=== PATIENT | female | born 1950 | race African-American/Black ===

== ENCOUNTER 2017-07-15 15:46 | Emergency (ER) | payer MEDICARE, OTHER ==
[~2017-07-15] VITALS: Ht 170.2 cm; Wt 89.0 kg
[2017-07-15] MEDS ORDERED: ALPR1TAB2 PO (16:34)
[2017-07-15] MEDS ORDERED: TRAM50TA3 PO (16:34)
[2017-07-15] MEDS ORDERED: POTA10CA42 PO (16:34)
[2017-07-15] MEDS ORDERED: HYDR-523 PO (16:34)
[2017-07-15] MEDS ORDERED: FLEXARIL (16:34)
[2017-07-15] MEDS ORDERED: DIPH25CA83 PO (16:34)
[2017-07-15] MEDS ORDERED: HYDROCODONE/ACETAMINOPHEN 5/325MG TABLET PO ONE (22:45)
[2017-07-15 23:10] LABS: BASOPHILS % 1.1 % (0.0-2.0); EOSINOPHILS % 2.8 % (0.0-5.0); HEMATOCRIT. 31.5 % (36.0-48.0); LYMPHOCYTES % 32.7 % (20.0-50.0); MEAN CORPUSCULAR HEMOGLOBIN 27.5 pg (28.0-32.0); MEAN CORPUSCULAR VOLUME 86.3 fL (81.0-99.0); MEAN PLATELET VOLUME 8.1 fl (7.4-10.4); MONOCYTES % 6.9 % (2.0-8.0); NEUTROPHILS % 56.5 % (40.0-76.0); PLATELET 250 x1000/uL (130-400); RED BLOOD CELL COUNT 3.65 mill/uL (4.2-5.4); RED CELL DISTRIBUTION WIDTH 20.5 % (11.6-14.6)
[2017-07-15 23:15] LABS: CHLORIDE 107 mEq/L (98-107)
[2017-07-15 23:23] LABS: CARBON DIOXIDE 27 mEq/L (21-32)
[2017-07-16 01:00] VITALS: BP 139/78
== END 2017-07-16 01:00 | disposition home or self-care (01) ==
LOC: ER 15:46
DX: G89.29 Other chronic pain (principal); M54.9 Dorsalgia, unspecified
CPT/HCPCS: 36415; 71010; 80053; 85025; 93005; 99285; A4315

== ENCOUNTER 2018-03-07 15:06 | Observation (INO) | payer OTHER ==
[~2018-03-07] VITALS: Ht 170.2 cm; Wt 88.0 kg
[~2018-03-07 15:06] MED LIST: ALPR1TAB2 PO; DIPH25CA83 PO; FLEXARIL; HYDR-523 PO; POTA10CA42 PO; TRAM50TA3 PO
[2018-03-07] MEDS ORDERED: MORPHINE SULFATE 4 MG/ML CPJ (NOT FOR IM USE) IV STA (15:35)
[2018-03-07] MEDS ORDERED: ONDANSETRON HCL 4MG/2ML VIAL IV STA (15:35)
[2018-03-07] MEDS ORDERED: PIPERACILLIN/TAZ 3.375G PREMIX 50 ML IV ONE (15:45)
[2018-03-07] MEDS ORDERED: VANCOMYCIN 1 G PREMIX 200 ML IV ONE (15:45)
[2018-03-07 17:28] LABS: HEMATOCRIT. 31.7 % (36.0-48.0); HEMOGLOBIN. 9.9 g/dL (12.0-16.0); MEAN CORPUSCULAR HEMOGLOBIN 25.2 pg (28.0-32.0); MEAN CORPUSCULAR VOLUME 80.4 fL (81.0-99.0); MEAN PLATELET VOLUME 7.7 fl (7.4-10.4); PLATELET 214 x1000/uL (130-400); RED BLOOD CELL COUNT 3.94 mill/uL (4.2-5.4); RED CELL DISTRIBUTION WIDTH 23.3 % (11.6-14.6)
[2018-03-07 17:31] LABS: CHLORIDE 104 mEq/L (98-107)
[2018-03-07 17:33] LABS: INR 1.2; PARTIAL THROMBOPLASTIN TIME 27.9 sec (23.4-31.0); PROTHROMBIN TIME 12.7 sec (9.4-11.6)
[2018-03-07] MEDS ORDERED: POTASSIUM CHLORIDE 20MEQ TABLET SR PO ONE (17:45)
[2018-03-07 17:51] LABS: PLATELET ESTIMATE NORMAL
[2018-03-07] MEDS ORDERED: FUROSEMIDE 40MG/4ML VIAL IVP ONE (18:00)
[2018-03-07 18:42] LABS: CLARITY URINE CLOUDY (CLEAR); COLOR URINE DARK YELLOW (YELLOW); KETONES URINE 1+ (NEGATIVE); LEUKOCYTE ESTERASE URINE NEGATIVE (NEGATIVE); NITRITE URINE NEGATIVE (NEGATIVE); OCCULT BLOOD URINE 2+ (NEGATIVE); PH URINE 5.5 (4.5-8.0); PROTEIN URINE 1+ (NEGATIVE); SPECIFIC GRAVITY URINE 1.029 (1.005-1.030)
[2018-03-07] MEDS ORDERED: HYDROCODONE/ACETAMINOPHEN 5/325MG TABLET PO ONE (20:30)
[2018-03-07] MEDS ORDERED: ONDANSETRON 4MG ODT PO ONE (20:30)
[2018-03-07 22:15] VITALS: BP 118/74
[2018-03-07 23:00] VITALS: BP 118/74
[2018-03-07] MEDS ORDERED: ONDANSETRON HCL 4MG/2ML VIAL IV PRN (23:30)
[2018-03-07] MEDS ORDERED: ACETAMINOPHEN 325MG TABLET PO PRN (23:30)
[2018-03-07] MEDS ORDERED: HYDROCODONE/APAP 7.5/325MG 1 TAB TABLET PO PRN (23:30)
[2018-03-07] MEDS ORDERED: CLONIDINE 0.1MG TABLET PO PRN (23:30)
[2018-03-08] MEDS: ASPIRIN 81MG EC TABLET PO SCH ×2 (00:08→09:08)
[2018-03-08] MEDS: METOPROLOL TARTRATE 50MG TABLET PO SCH ×3 (00:09→21:00)
[2018-03-08] MEDS: ENOXAPARIN 100MG/ML SYR SUBCUT SCH ×4 (00:10→21:04)
[2018-03-08] MEDS: PIPERACILLIN/TAZ 3.375G PREMIX 50 ML IV SCH ×3 (02:11→19:00)
[2018-03-08] MEDS ORDERED: BACL-141 PO (02:35)
[2018-03-08] MEDS ORDERED: NIAC1000 PO (02:37)
[2018-03-08] MEDS ORDERED: NON FORMULARY PATIENT HOME MED EA XX SCH (02:45)
[2018-03-08] MEDS ORDERED: ALPRAZOLAM 0.5 MG TABLET PO PRN (02:48)
[2018-03-08] MEDS ORDERED: VANCOMYCIN 500 MG PREMIX 100 ML IV SCH (03:00)
[2018-03-08 04:00] VITALS: BP 119/45
[2018-03-08] MEDS: HYDROMORPHONE HCL/PF 2MG/ML CPJ IV PRN ×4 (04:16→21:11)
[2018-03-08 06:19] LABS: BASOPHILS % 0.3 % (0.0-2.0); EOSINOPHILS % 0.3 % (0.0-5.0); HEMATOCRIT. 27.7 % (36.0-48.0); HEMOGLOBIN. 8.7 g/dL (12.0-16.0); LYMPHOCYTES % 10.4 % (20.0-50.0); MEAN CORPUSCULAR HEMOGLOBIN 25.5 pg (28.0-32.0); MEAN PLATELET VOLUME 8.7 fl (7.4-10.4); MONOCYTES % 3.1 % (2.0-8.0); NEUTROPHILS % 85.9 % (40.0-76.0); PLATELET 190 x1000/uL (130-400); RED BLOOD CELL COUNT 3.42 mill/uL (4.2-5.4)
[2018-03-08 06:37] LABS: CHLORIDE 104 mEq/L (98-107)
[2018-03-08 06:57] LABS: CREATINE KINASE MB FRACTION 0.9 ng/mL (0.5-3.6)
[2018-03-08 06:59] LABS: LDL CHOLESTEROL 17 mg/dL (5-100); T4 FREE 0.95 ng/dL (0.76-1.46)
[2018-03-08 07:00] LABS: CREATINE KINASE 565 IU/L (26-192)
[2018-03-08 07:01] LABS: HDL CHOLESTEROL 21 mg/dL (40-59)
[2018-03-08 07:27] VITALS: BP 108/42
[2018-03-08] MEDS ORDERED: POTASSIUM CHLORIDE 20MEQ TABLET SR PO SCH (09:00)
[2018-03-08] MEDS: FUROSEMIDE 40MG TABLET PO SCH (09:00)
[2018-03-08] MEDS: DIPHENHYDRAMINE 25MG CAPSULE PO PRN (09:09)
[2018-03-08] MEDS: POTASSIUM CHLORIDE 20MEQ/PACKET PO SCH (10:30)
[2018-03-08 11:18] VITALS: BP 102/32
[2018-03-08] MEDS: VANCOMYCIN 1 G PREMIX 200 ML IV SCH (12:36)
[2018-03-08 15:30] VITALS: BP 100/51
[2018-03-08 15:47] LABS: CREATINE KINASE MB FRACTION 1.1 ng/mL (0.5-3.6)
[2018-03-08 20:00] VITALS: BP 114/46
[2018-03-09] VITALS: BP 146/47
[2018-03-09] MEDS: PIPERACILLIN/TAZ 3.375G PREMIX 50 ML IV SCH ×2 (01:42→09:21)
[2018-03-09] MEDS: DIPHENHYDRAMINE 25MG CAPSULE PO PRN (01:48)
[2018-03-09] MEDS: HYDROMORPHONE HCL/PF 2MG/ML CPJ IV PRN ×2 (03:07→11:17)
[2018-03-09 04:00] VITALS: BP 121/46
[2018-03-09] MEDS: VANCOMYCIN 1 G PREMIX 200 ML IV SCH (05:06)
[2018-03-09 08:00] VITALS: BP 132/54
[2018-03-09] MEDS: FUROSEMIDE 40MG TABLET PO SCH (08:56)
[2018-03-09] MEDS: ASPIRIN 81MG EC TABLET PO SCH (08:56)
[2018-03-09] MEDS: METOPROLOL TARTRATE 50MG TABLET PO SCH (08:56)
[2018-03-09] MEDS: ENOXAPARIN 100MG/ML SYR SUBCUT SCH (08:58)
[2018-03-09] MEDS: POTASSIUM CHLORIDE 20MEQ/PACKET PO SCH (08:58)
[2018-03-09 12:00] VITALS: BP 150/57
[2018-03-09 12:43] LABS: HEMATOCRIT 29.9 % (36.0-48.0); HEMOGLOBIN 9.3 g/dL (12.0-16.0); MEAN CORPUSCULAR HEMOGLOBIN 24.8 pg (28.0-32.0); MEAN CORPUSCULAR VOLUME 79.5 fL (81.0-99.0); PLATELET 244 x1000/uL (130-400); RED BLOOD CELL COUNT 3.77 mill/uL (4.2-5.4); RED CELL DISTRIBUTION WIDTH 23.3 % (11.6-14.6)
[2018-03-09 12:47] LABS: CHLORIDE 103 mEq/L (98-107)
[2018-03-09] MEDS ORDERED: DILTIAZEM HCL 60MG TABLET PO SCH (14:00)
[2018-03-09] MEDS ORDERED: POTASSIUM CHLORIDE 20MEQ TABLET SR PO SCH (14:00)
[2018-03-09] MEDS ORDERED: LEVOFLOXACIN 500MG PREMIX 100 ML IV SCH (15:00)
[2018-03-09 16:00] VITALS: BP 112/41
[2018-03-09] MEDS ORDERED: LEVOFLOXACIN 500MG PREMIX 100 ML IV NR (16:00)
[2018-03-09 17:23] VITALS: BP 112/41
[2018-03-10] MEDS ORDERED: LEVOFLOXACIN 500MG TABLET PO SCH (11:00)
== END 2018-03-09 19:10 | disposition home health service (06) ==
LOC: ER 15:34 → EDBEDREQSVC 15:38 → EDBEDREQTM 18:02 → 7WST 18:02 → EDBEDREQ 18:02 → EDBEDREQSVC 18:02 → ENRESERV 19:23
PROVIDERS: ADMIT Internal Medicine; ATTEND Internal Medicine
DX: M25.551 Pain in right hip (principal); M06.9 Rheumatoid arthritis, unspecified; R26.9 Unspecified abnormalities of gait and mobility; M16.11 Unilateral primary osteoarthritis, right hip; J44.9 Chronic obstructive pulmonary disease, unspecified; K21.9 Gastro-esophageal reflux disease without esophagitis; N39.0 Urinary tract infection, site not specified; I48.91 Unspecified atrial fibrillation; I10 Essential (primary) hypertension; F41.9 Anxiety disorder, unspecified; E66.9 Obesity, unspecified; Z96.652 Presence of left artificial knee joint; Z98.84 Bariatric surgery status
CPT/HCPCS: 36415; 71045; 72192; 73502; 73700; 73721; 74018; 80048; 80053; 80061; 81003; 82550; 82553; 83605; 83690; 83880; 84439; 84443; 84484; 85025; 85027; 85610; 85651; 85730; 86140; 87040; 87077; 87086; 87186; 93005; 93306; 93970; 96365; 96366; 96367; 96368; 96372; 96375; 96376; 97110; 97162; 97530; 99285; G0378; J1170; J1650; J1940; J1956; J2270; J2405; J2543; J3370; J7030; J7050; Q0162; Q0163; A4315

== ENCOUNTER 2018-07-18 12:58 | Emergency (ER) | payer OTHER ==
[~2018-07-18] VITALS: Ht 157.5 cm; Wt 101.0 kg
[~2018-07-18 12:58] MED LIST changes: +BACL-141 PO; -FLEXARIL; -POTA10CA42 PO; -TRAM50TA3 PO
[2018-07-18] MEDS ORDERED: CLONIDINE 0.2MG TABLET PO ONE (14:45)
[2018-07-18] MEDS ORDERED: METOCLOPRAMIDE HCL 10MG/2ML VIAL IV ONE (14:45)
[2018-07-18] MEDS ORDERED: DIPHENHYDRAMINE 50MG/ML VIAL IV ONE (14:45)
[2018-07-18 15:18] LABS: BASOPHILS % 0.6 % (0.0-2.0); EOSINOPHILS % 4.8 % (0.0-5.0); HEMATOCRIT. 32.4 % (36.0-48.0); HEMOGLOBIN. 9.9 g/dL (12.0-16.0); LYMPHOCYTES % 30.6 % (20.0-50.0); MEAN CORPUSCULAR HEMOGLOBIN 24.2 pg (28.0-32.0); MEAN CORPUSCULAR VOLUME 79.4 fL (81.0-99.0); MEAN PLATELET VOLUME 8.1 fl (7.4-10.4); MONOCYTES % 8.5 % (2.0-8.0); NEUTROPHILS % 55.5 % (40.0-76.0); PLATELET 263 x1000/uL (130-400); RED BLOOD CELL COUNT 4.08 mill/uL (4.2-5.4)
[2018-07-18 15:19] LABS: CHLORIDE 108 mEq/L (98-107)
[2018-07-18 15:56] LABS: PLATELET ESTIMATE NORMAL
[2018-07-18] MEDS ORDERED: MORPHINE SULFATE 2 MG/ML CPJ (NOT FOR IM USE) IV NR (17:30)
[2018-07-18 19:17] LABS: CLARITY URINE CLEAR (CLEAR); COLOR URINE YELLOW (YELLOW); KETONES URINE NEGATIVE (NEGATIVE); LEUKOCYTE ESTERASE URINE NEGATIVE (NEGATIVE); NITRITE URINE NEGATIVE (NEGATIVE); OCCULT BLOOD URINE TRACE (NEGATIVE); PH URINE 8.5 (4.5-8.0); PROTEIN URINE NEGATIVE (NEGATIVE); SPECIFIC GRAVITY URINE 1.008 (1.005-1.030)
[2018-07-18 21:09] VITALS: BP 128/70
== END 2018-07-18 21:11 | disposition home or self-care (01) ==
LOC: ER 12:58
DX: R51 Headache (principal); D64.9 Anemia, unspecified; R79.89 Other specified abnormal findings of blood chemistry
CPT/HCPCS: 36415; 71045; 80053; 81003; 83690; 83880; 84484; 85025; 93005; 96374; 96375; 99285; J1200; J2270; J2765; A4315

== ENCOUNTER 2019-02-28 22:56 | Inpatient (IN) | payer MEDICARE, OTHER ==
[~2019-02-28] VITALS: Ht 167.6 cm; Wt 98.4 kg
[2019-02-28] MEDS ORDERED: MORPHINE SULFATE 4 MG/ML CPJ (NOT FOR IM USE) IV STA (23:37)
[2019-02-28] MEDS ORDERED: ONDANSETRON HCL 4MG/2ML INJ IV STA (23:37)
[2019-02-28] MEDS ORDERED: ASPIRIN 81MG TABLET PO ONE (23:45)
[2019-02-28] MEDS ORDERED: NITROGLYCERIN OINT 1GM/INCH UDPKT TD ONE (23:45)
[2019-03-01] VITALS (14 sets, daily range): BP systolic 89–156; BP diastolic 42–72
[2019-03-01] LABS: BASOPHILS % 1.5 % (0.0-2.0); EOSINOPHILS % 2.5 % (0.0-5.0); HEMATOCRIT. 21.5 % (36.0-48.0); LYMPHOCYTES % 19.6 % (20.0-50.0); MEAN CORPUSCULAR HEMOGLOBIN 19.5 pg (28.0-32.0); MEAN CORPUSCULAR VOLUME 67.7 fL (81.0-99.0); MEAN PLATELET VOLUME 8.8 fl (7.4-10.4); MONOCYTES % 10.6 % (2.0-8.0); NEUTROPHILS % 65.8 % (40.0-76.0); PLATELET 660 x1000/uL (130-400); RED BLOOD CELL COUNT 3.18 mill/uL (4.2-5.4); RED CELL DISTRIBUTION WIDTH 28.3 % (11.6-14.6)
[2019-03-01 00:05] LABS: CHLORIDE 112 mEq/L (98-107); HEMOGLOBIN. 6.2 g/dL (12.0-16.0)
[2019-03-01 00:33] LABS: PLATELET ESTIMATE INCREASED
[2019-03-01] MEDS ORDERED: MORPHINE SULFATE 4 MG/ML CPJ (NOT FOR IM USE) IV ONE (04:30)
[2019-03-01] MEDS ORDERED: ACETAMINOPHEN 325MG TABLET PO PRN (11:30)
[2019-03-01] MEDS ORDERED: CLONIDINE 0.1MG TABLET PO PRN (11:30)
[2019-03-01] MEDS ORDERED: MAGNESIUM/ALUMINUM HYDROXIDE/SIMETHICONE 30ML UDC PO PRN (11:30)
[2019-03-01] MEDS ORDERED: NA PHOS,M-B/NA PHOS,DI-BA ENEMA 118ML PR PRN (11:30)
[2019-03-01] MEDS ORDERED: ONDANSETRON HCL 4MG/2ML INJ IV PRN (11:30)
[2019-03-01] MEDS ORDERED: DOCUSATE SODIUM 100MG CAPSULE PO PRN (11:30)
[2019-03-01] MEDS ORDERED: IPRATROPIUM/ALBUTEROL 0.5-3(2.5)MG/3ML NEB INH PRN (11:30)
[2019-03-01] MEDS ORDERED: LORAZEPAM 0.5MG TABLET PO PRN ×2 (11:30→15:30)
[2019-03-01] MEDS ORDERED: ACETAMINOPHEN 650MG SUPP PR PRN (11:30)
[2019-03-01] MEDS: HYDROCODONE/ACETAMINOPHEN 5/325MG TABLET PO PRN ×2 (12:40→21:16)
[2019-03-01 13:43] LABS: CHLORIDE 112 mEq/L (98-107)
[2019-03-01 13:44] LABS: INR 1.1
[2019-03-01 14:03] LABS: MEAN CORPUSCULAR HEMOGLOBIN 19.3 pg (28.0-32.0); MEAN CORPUSCULAR VOLUME 68.3 fL (81.0-99.0); PLATELET 623 x1000/uL (130-400); RED BLOOD CELL COUNT 3.12 mill/uL (4.2-5.4); RED CELL DISTRIBUTION WIDTH 28.1 % (11.6-14.6)
[2019-03-01 14:11] LABS: HEMATOCRIT 21.3 % (36.0-48.0)
[2019-03-01] MEDS ORDERED: MEDICATION NOT ON FORMULARY EA (Alprazolam (Xanax) 1 MG) PO PRN (14:15)
[2019-03-01] MEDS ORDERED: ALPRAZOLAM 0.5 MG TABLET PO PRN (14:30)
[2019-03-01 14:58] LABS: CLARITY URINE CLOUDY (CLEAR); COLOR URINE AMBER (YELLOW); KETONES URINE NEGATIVE (NEGATIVE); LEUKOCYTE ESTERASE URINE 2+ (NEGATIVE); NITRITE URINE POSITIVE (NEGATIVE); OCCULT BLOOD URINE 2+ (NEGATIVE); PROTEIN URINE 1+ (NEGATIVE); SPECIFIC GRAVITY URINE 1.022 (1.005-1.030)
[2019-03-01 15:26] LABS: *BARBITURATES SCREEN URINE NEGATIVE (NEGATIVE)
[2019-03-01 15:27] LABS: *AMPHETAMINES SCREEN URINE NEGATIVE (NEGATIVE); *BENZODIAZEPINES SCREEN URINE NEGATIVE (NEGATIVE); *COCAINE SCREEN URINE NEGATIVE (NEGATIVE); METHADONE URINE SCREEN NEGATIVE (NEGATIVE)
[2019-03-01 15:28] LABS: CANNABINOID URINE SCREEN PRESUMTIVE POSITIVE (NEGATIVE); OPIATES URINE SCREEN PRESUMTIVE POSITIVE (NEGATIVE); PHENCYCLIDINE URINE SCREEN NEGATIVE (NEGATIVE)
[2019-03-01] MEDS ORDERED: POTASSIUM CHLORIDE INJ 40 MEQ in DEXT 5% WATER 250 ML IV NR (16:00)
[2019-03-01 16:09] LABS: CREATINE KINASE 82 IU/L (26-192); CREATINE KINASE MB FRACTION 1.3 ng/mL (0.5-3.6)
[2019-03-01] MEDS: FOLIC ACID 1MG TABLET PO SCH (16:10)
[2019-03-01] MEDS: DEXT 5%/0.45% NACL 1000ML 1,000 ML IV SCH (16:51)
[2019-03-01] MEDS: GUAIFENESIN 200MG/10ML SUGAR FREE UDC PO PRN (17:02)
[2019-03-01] MEDS: DIPHENHYDRAMINE 50MG/ML VIAL IV PRN ×2 (17:02→23:15)
[2019-03-01 17:08] LABS: BG BASE EXCESS -0.2 mmol/L (-2.0-2.0); BG CARBOXYHEMOGLOBIN 0.3 % (0.5-1.5); BG DEOXYHEMOGLOBIN 6.7 % (0.0-5.0); BG FRACTION INSPIRED OXYGEN 21; BG HCO3 ACT 24.4 mmol/L (22.0-26.0); BG METHEMOGLOBIN 0.3 % (0.0-1.5); BG OXYGEN SATURATION 93.3 % (92.0-98.5); BG OXYHEMOGLOBIN 92.7 % (94.0-97.0); BG PCO2 39.8 mmHg (35.0-45.0); BG PH 7.406 (7.350-7.450); BG PO2 96.6 mmHg (75.0-100.0); BG SAMPLE SITE LEFT BRACHIAL; BG TOTAL HEMOGLOBIN 6.3 g/dL (12.0-18.0); BG VENT MODE ROOM AIR
[2019-03-01] MEDS ORDERED: MEDICATION NOT ON FORMULARY EA (Baclofen 10 MG) PO SCH (21:00)
[2019-03-01] MEDS: BACLOFEN 10MG TABLET PO SCH (21:16)
[2019-03-01] MEDS: DILTIAZEM HCL 30MG TABLET PO SCH (23:20)
[2019-03-01 23:46] LABS: CREATINE KINASE 73 IU/L (26-192)
[2019-03-01 23:47] LABS: CREATINE KINASE MB FRACTION < 1.0 ng/mL (0.5-3.6)
[2019-03-02] VITALS (11 sets, daily range): BP systolic 109–155; BP diastolic 52–82
[2019-03-02 00:56] LABS: HEMATOCRIT 27.6 % (36.0-48.0); HEMOGLOBIN 8.4 g/dL (12.0-16.0)
[2019-03-02] MEDS: HYDROCODONE/ACETAMINOPHEN 5/325MG TABLET PO PRN ×3 (05:17→22:04)
[2019-03-02] MEDS: DILTIAZEM HCL 30MG TABLET PO SCH ×3 (05:25→21:27)
[2019-03-02] MEDS ORDERED: LIDOCAINE HCL 1% 20ML VIAL (Pyxis) INJ ONE (07:27)
[2019-03-02] MEDS ORDERED: SODIUM BICARBONATE 4% (2.4MEQ) 5ML VIAL IV ONE (07:27)
[2019-03-02 07:28] LABS: BASOPHILS % 1.9 % (0.0-2.0); HEMATOCRIT. 29.7 % (36.0-48.0); HEMOGLOBIN. 8.8 g/dL (12.0-16.0); MEAN CORPUSCULAR VOLUME 70.7 fL (81.0-99.0); MEAN PLATELET VOLUME 8.6 fl (7.4-10.4); MONOCYTES % 8.9 % (2.0-8.0); NEUTROPHILS % 63.2 % (40.0-76.0); PLATELET 708 x1000/uL (130-400); RED CELL DISTRIBUTION WIDTH 27.6 % (11.6-14.6)
[2019-03-02 07:40] LABS: T4 FREE 0.89 ng/dL (0.76-1.46)
[2019-03-02] MEDS ORDERED: IOHEXOL-350 100 ML BOTTLE ONE (09:09)
[2019-03-02] MEDS: FOLIC ACID 1MG TABLET PO SCH (10:06)
[2019-03-02] MEDS: PANTOPRAZOLE SODIUM 40 MG/VIAL IV SCH (10:06)
[2019-03-02] MEDS: DEXT 5%/0.45% NACL 1000ML 1,000 ML IV SCH (10:08)
[2019-03-02] MEDS ORDERED: FUROSEMIDE 40MG/4ML VIAL IVP NR (11:00)
[2019-03-02 12:20] LABS: FOLIC ACID (FOLATE) SERUM 15.4 ng/mL (>5.38)
[2019-03-02] MEDS: IRON SUCROSE COMPLEX 100 MG/5 ML ML IV SCH (13:10)
[2019-03-02] MEDS: DIPHENHYDRAMINE 50MG/ML VIAL IV PRN (13:10)
[2019-03-02 13:15] LABS: HEMATOCRIT 26.2 % (36.0-48.0); HEMOGLOBIN 7.9 g/dL (12.0-16.0)
[2019-03-02] MEDS ORDERED: IOHEXOL-300 50 ML BOTTLE IV ONE (15:59)
[2019-03-02] MEDS: ALPRAZOLAM 0.5 MG TABLET PO PRN (16:30)
[2019-03-02] MEDS: LEVOFLOXACIN 500MG PREMIX 100 ML IV SCH (16:31)
[2019-03-02 18:25] LABS: HEMATOCRIT 24.5 % (36.0-48.0); HEMOGLOBIN 7.5 g/dL (12.0-16.0)
[2019-03-02] MEDS: BACLOFEN 10MG TABLET PO SCH (21:25)
[2019-03-03] VITALS: BP 155/68
[2019-03-03] MEDS: DIPHENHYDRAMINE 50MG/ML VIAL IV PRN ×3 (02:28→22:25)
[2019-03-03] MEDS: GUAIFENESIN 200MG/10ML SUGAR FREE UDC PO PRN ×2 (02:28→17:20)
[2019-03-03] MEDS: ALPRAZOLAM 0.5 MG TABLET PO PRN (02:28)
[2019-03-03 04:00] VITALS: BP 148/66
[2019-03-03] MEDS: DILTIAZEM HCL 30MG TABLET PO SCH ×3 (06:27→22:00)
[2019-03-03 07:04] LABS: HEMATOCRIT 27.9 % (36.0-48.0); HEMOGLOBIN 8.6 g/dL (12.0-16.0); MEAN CORPUSCULAR HEMOGLOBIN 22.3 pg (28.0-32.0); MEAN CORPUSCULAR VOLUME 71.9 fL (81.0-99.0); PLATELET 653 x1000/uL (130-400); RED BLOOD CELL COUNT 3.88 mill/uL (4.2-5.4); RED CELL DISTRIBUTION WIDTH 29.2 % (11.6-14.6)
[2019-03-03 07:07] LABS: CHLORIDE 112 mEq/L (98-107)
[2019-03-03 08:00] VITALS: BP 108/35
[2019-03-03] MEDS: HYDROCODONE/ACETAMINOPHEN 5/325MG TABLET PO PRN ×3 (08:25→22:15)
[2019-03-03] MEDS: FUROSEMIDE 40MG/4ML VIAL IVP SCH (09:03)
[2019-03-03] MEDS: PANTOPRAZOLE SODIUM 40 MG/VIAL IV SCH (09:03)
[2019-03-03] MEDS: FOLIC ACID 1MG TABLET PO SCH (09:04)
[2019-03-03 12:00] VITALS: BP 143/33
[2019-03-03] MEDS ORDERED: POTASSIUM CHLORIDE 20MEQ TABLET SR PO NR (12:00)
[2019-03-03] MEDS: IRON SUCROSE COMPLEX 100 MG/5 ML ML IV SCH (14:52)
[2019-03-03 16:00] VITALS: BP 129/44
[2019-03-03] MEDS: LEVOFLOXACIN 500MG PREMIX 100 ML IV SCH (17:20)
[2019-03-03 20:00] VITALS: BP 110/48
[2019-03-03] MEDS ORDERED: CYANOCOBALAMIN 1000MCG/ML VIAL IM NR (21:30)
[2019-03-03] MEDS: BACLOFEN 10MG TABLET PO SCH (22:14)
[2019-03-04] VITALS: BP 121/49
[2019-03-04 04:00] VITALS: BP 108/31
[2019-03-04] MEDS: DIPHENHYDRAMINE 50MG/ML VIAL IV PRN ×2 (04:11→12:20)
[2019-03-04] MEDS: DILTIAZEM HCL 30MG TABLET PO SCH ×2 (06:00→13:58)
[2019-03-04] MEDS: FOLIC ACID 1MG TABLET PO SCH (09:20)
[2019-03-04] MEDS: PANTOPRAZOLE SODIUM 40 MG/VIAL IV SCH (09:22)
[2019-03-04] MEDS: HYDROCODONE/ACETAMINOPHEN 5/325MG TABLET PO PRN (09:22)
[2019-03-04] MEDS: FUROSEMIDE 40MG/4ML VIAL IVP SCH (09:22)
[2019-03-04 12:00] VITALS: BP 124/74
[2019-03-04] MEDS ORDERED: ALPRAZOLAM 0.5 MG TABLET PO PRN (12:15)
[2019-03-04 13:21] LABS: HEMATOCRIT 32.4 % (36.0-48.0); MEAN CORPUSCULAR HEMOGLOBIN 22.1 pg (28.0-32.0); MEAN CORPUSCULAR VOLUME 71.8 fL (81.0-99.0); PLATELET 784 x1000/uL (130-400); RED BLOOD CELL COUNT 4.51 mill/uL (4.2-5.4); RED CELL DISTRIBUTION WIDTH 30.9 % (11.6-14.6)
[2019-03-04 13:24] LABS: CHLORIDE 107 mEq/L (98-107)
[2019-03-04 13:37] VITALS: BP 124/74
[2019-03-04] MEDS: IRON SUCROSE COMPLEX 100 MG/5 ML ML IV SCH (13:58)
[2019-03-04 16:00] VITALS: BP 126/46
[2019-03-04] MEDS ORDERED: NITROFURANTOIN 100MG M/M CAPSULE PO SCH (21:00)
[2019-03-05] MEDS ORDERED: PANTOPRAZOLE 40MG DR TABLET PO SCH (07:10)
[2019-03-05] MEDS ORDERED: FAMOTIDINE 20MG TABLET PO SCH (09:00)
== END 2019-03-04 16:40 | disposition home health service (06) | DRG 204 ==
LOC: ER 22:56 → 8WST 03-01 02:37 → EDBEDREQ 03-01 02:41 → EDBEDREQTM 03-01 02:41 → EDBEDREQDT 03-01 02:41 → ENRESERV 03-01 10:08 → ER 03-01 11:29
PROVIDERS: ADMIT Internal Medicine; ATTEND Internal Medicine
PROC: 30233N1 Transfusion of Nonautologous Red Blood Cells into Peripheral Vein, Percutaneous Approach (ICD-10-PCS; principal; 2019-03-01)
PROC: 02HV33Z Insertion of Infusion Device into Superior Vena Cava, Percutaneous Approach (ICD-10-PCS; 2019-03-02)
PROC: B548ZZA Ultrasonography of Superior Vena Cava, Guidance (ICD-10-PCS; 2019-03-02)
PROC: B5181ZA Fluoroscopy of Superior Vena Cava using Low Osmolar Contrast, Guidance (ICD-10-PCS; 2019-03-02)
DX: R06.03 Acute respiratory distress (principal); N39.0 Urinary tract infection, site not specified; K92.2 Gastrointestinal hemorrhage, unspecified; D68.59 Other primary thrombophilia; K90.9 Intestinal malabsorption, unspecified; I48.92 Unspecified atrial flutter; E87.70 Fluid overload, unspecified; Z86.718 Personal history of other venous thrombosis and embolism; L40.9 Psoriasis, unspecified; E87.6 Hypokalemia; E86.0 Dehydration; I48.91 Unspecified atrial fibrillation; E11.65 Type 2 diabetes mellitus with hyperglycemia; D50.9 Iron deficiency anemia, unspecified; B96.20 Unspecified Escherichia coli [E. coli] as the cause of diseases classified elsewhere; D57.1 Sickle-cell disease without crisis; D63.8 Anemia in other chronic diseases classified elsewhere; E53.8 Deficiency of other specified B group vitamins; Z96.659 Presence of unspecified artificial knee joint; E78.5 Hyperlipidemia, unspecified; I10 Essential (primary) hypertension; M19.90 Unspecified osteoarthritis, unspecified site; Z86.711 Personal history of pulmonary embolism; Z98.84 Bariatric surgery status; Z79.899 Other long term (current) drug therapy; Z79.01 Long term (current) use of anticoagulants
CPT/HCPCS: 36415; 36558; 36573; 36600; 71045; 71275; 75820; 80048; 80061; 80305; 82270; 82375; 82550; 82553; 82607; 82728; 82746; 82805; 83036; 83540; 83550; 83880; 84439; 84443; 84484; 85014; 85018; 85027; 85651; 86038; 86850; 86900; 86920; 87077; 87186; 93005; 93306; 93970; 96374; 96375; 97162; 97530; 99285; C1725; C1769; C1887; C9113; J1200; J1940; J1956; J2270; J2405; J3420; J3480; J3490; J7050; J7060; P9016; Q9967; A4315

== ENCOUNTER 2021-10-21 04:06 | Emergency (ER) | payer OTHER, MEDICAID ==
[~2021-10-21] VITALS: Ht 162.6 cm; Wt 64.0 kg
[~2021-10-21 04:06] MED LIST changes: +ASPI-1497 MT; +FERR-71 MT; +FURO-151 MT; +LOSA25TA3 MT; +METO25TA6 MT; +SILD20TA PO
[2021-10-21] MEDS ORDERED: KETOROLAC 30MG/ML VIAL IV STA (07:17)
[2021-10-21 08:12] LABS: BASOPHILS % 1.3 % (0.0-2.0); HEMATOCRIT. 32.1 % (36.0-48.0); HEMOGLOBIN. 10.6 g/dL (12.0-16.0); LYMPHOCYTES % 15.1 % (20.0-50.0); MEAN CORPUSCULAR HEMOGLOBIN 29.7 pg (28.0-32.0); MEAN CORPUSCULAR VOLUME 90.1 fL (81.0-99.0); MEAN PLATELET VOLUME 7.3 fl (7.4-10.4); NEUTROPHILS % 78.6 % (40.0-76.0); PLATELET 456 x1000/uL (130-400); RED BLOOD CELL COUNT 3.57 mill/uL (4.2-5.4); RED CELL DISTRIBUTION WIDTH 21.8 % (11.6-14.6)
[2021-10-21 08:18] LABS: CHLORIDE 106 mEq/L (98-107)
[2021-10-21] MEDS ORDERED: MAGNESIUM 2 G PREMIX 50 ML IV ONE (11:45)
[2021-10-21] MEDS ORDERED: KCL 20MEQ/100ML PREMIX 100 ML IV ONE ×5 (11:45)
[2021-10-21] MEDS ORDERED: POTASSIUM CHLORIDE 20MEQ/PACKET PO ONE (11:45)
[2021-10-21] MEDS ORDERED: KCL 20MEQ/100ML PREMIX 100 ML IV SCH (12:15)
[2021-10-21 18:58] VITALS: BP 131/60
== END 2021-10-21 19:17 | disposition short-term general hospital (02) ==
LOC: ER 04:06 → CANBEDREQ 18:34 → ER 19:17
DX: R53.1 Weakness (principal); E87.6 Hypokalemia; R53.81 Other malaise; J90 Pleural effusion, not elsewhere classified; M79.605 Pain in left leg; M79.604 Pain in right leg; D57.1 Sickle-cell disease without crisis; M32.9 Systemic lupus erythematosus, unspecified; D64.9 Anemia, unspecified; Z96.659 Presence of unspecified artificial knee joint; Z98.890 Other specified postprocedural states; Z79.899 Other long term (current) drug therapy
CPT/HCPCS: 36415; 71045; 71250; 72170; 73552; 73560; 73590; 80053; 83880; 84484; 85025; 93005; 96365; 96375; 99285; J1885; J3480